=== PATIENT | female | born 1990 | race African-American/Black ===

== ENCOUNTER 2019-04-04 07:42 | Emergency (ER) | payer MEDICAID ==
[~2019-04-04] VITALS: Ht 165.1 cm; Wt 141.5 kg
[2019-04-04 08:23] LABS: Eosinophils # (auto) 0 uL; Eosinophils % (auto) 0.5 % (0.0-7.0); Hemoglobin 9.9 g/dL (12.2-16.2); Lymphocytes # (auto) 1.6 uL; Monocytes # (auto) 0.5 uL; Nucleated Red Blood Cells % 0.1 %; White Blood Cell 6.3 10^3/uL (4.4-10.8)
[2019-04-04 08:25] LABS: Basophils # (auto) 0.1 uL; Basophils % (auto) 0.8 % (0.0-2.0); Hematocrit 32.7 % (36.0-46.0); Lymphocytes % (auto) 25.7 % (10.0-50.0); Mean Corpuscular Hemoglobin 20.5 pg (28.0-32.0); Mean Corpuscular Hgb Conc. 30.1 g/dL (32.0-36.0); Mean Corpuscular Volume 68.2 fL (80.0-100.0); Neutrophils # (auto) 4.1 uL; Platelet Count (auto) 266 10^3/uL (140-450); Red Cell Distribution Width 18.4 % (11.8-14.3)
[2019-04-04] MEDS: SODIUM CHLORIDE 0.9% 1,000 ML IVB ONE (08:28)
[2019-04-04] MEDS: PROMETHAZINE HCL 25 MG/ML 1ML IV PRN (08:28)
[2019-04-04 08:46] LABS: Magnesium 2.3 mg/dL (1.6-2.6)
[2019-04-04 08:48] LABS: Albumin 3.1 g/dL (3.4-5.0); Calcium 8.9 mg/dL (8.5-10.1); Potassium 3.6 mmol/L (3.5-5.1)
[2019-04-04 08:52] LABS: BUN/Creatinine Ratio 8.6; Bilirubin, Total 0.5 mg/dL (0.2-1.0); Total Protein 8.3 g/dL (6.4-8.2)
[2019-04-04 09:30] LABS: Urine Bacteria FEW /hpf (None Seen); Urine Blood Negative /uL (Negative); Urine Mucus FEW (None Seen); Urine Specific Gravity 1.033 (1.001-1.035); Urine WBC 4 /hpf (0 - 5)
[2019-04-04 11:01] VITALS: BP 111/70
[2019-04-04] MEDS: ONDANSETRON HCL 4 MG/2 ML VIAL IV ONE (12:16)
== END 2019-04-04 13:17 | disposition home or self-care (01) ==
LOC: ER 07:42
DX: O21.0 Mild hyperemesis gravidarum (principal); O23.41 Unspecified infection of urinary tract in pregnancy, first trimester; O99.011 Anemia complicating pregnancy, first trimester; D50.9 Iron deficiency anemia, unspecified; Z3A.01 Less than 8 weeks gestation of pregnancy
CPT/HCPCS: 36415; 76801; 80053; 81001; 81025; 83690; 83735; 84702; 85025; 96361; 96374; 96375; 99284; J2405; J2550; J7030